=== PATIENT | male | born 1945 | race Caucasian/White ===

== ENCOUNTER 2019-02-23 14:22 | Outpatient (RCR) | payer MEDICARE, OTHER | END 2019-05-24 | disposition home or self-care (01) | LOC: WSST | DX: R13.12 Dysphagia, oropharyngeal phase (principal) ==

== ENCOUNTER → 2019-03-03 | Outpatient (CLI) | payer MEDICARE, OTHER | LOC: COL.RAD 14:26 | DX: R13.12 Dysphagia, oropharyngeal phase (principal) ==

== ENCOUNTER → 2020-11-18 | Outpatient (CLI) | payer MEDICARE, OTHER | LOC: COL.RAD 10:59 | DX: R06.02 Shortness of breath (principal); Z86.19 Personal history of other infectious and parasitic diseases | CPT/HCPCS: Q9967 ==

== ENCOUNTER → 2021-11-14 | Outpatient (CLI) | payer MEDICARE, OTHER ==
[2021-11-14 13:15] LABS: BASO % 0.5 % (0.0-2.0); EOS # 0.2 K/mm3 (0.0-0.7); EOS % 2.6 % (0-4.0); GRAN # 4.3 K/mm3 (1.4-6.5); GRAN % 56.3 % (42.2-75.2); HEMATOCRIT 44.2 % (42.0-52.0); HEMOGLOBIN 15.2 g/dl (13.5-18.0); LYMPH # 2.5 K/mm3 (1.2-3.4); LYMPH % 32.2 % (20.0-51.0); MEAN CELL VOLUME 90 fl (80.0-100.0); MEAN CORPUSCULAR HEMOGLOBIN 31 pg (27.0-31.0); MEAN CORPUSCULAR HGB CONC 34 g/dl (33.0-37.0); MEAN PLATELET VOLUME 9.4 fl (7.4-10.4); MONO # 0.6 K/mm3 (0.1-0.6); PLATELET COUNT 324 K/mm3 (130-400); RED BLOOD COUNT 4.93 M/mm3 (4.20-5.60)
[2021-11-14 13:30] LABS: ALANINE AMINOTRANSFERASE 16 U/L (0-55); ALBUMIN 4.2 gm/dL (3.4-4.8); ALKALINE PHOSPHATASE 41 U/L (40-150); ANION GAP 11 mmol/L (7-16); AST,SGOT 15 U/L (5-34); BILIRUBIN,TOTAL 0.3 mg/dL (0.2-1.2); BLOOD UREA NITROGEN 20 mg/dL (8-26); CALCIUM 9.4 mg/dL (8.4-10.2); CARBON DIOXIDE 21 mmol/L (23-31); CHLORIDE 109 mmol/L (98-107); CREATININE, serum 0.95 mg/dL (0.72-1.25); GLUCOSE 96 mg/dL (70-99); POTASSIUM 4.4 mmol/L (3.5-4.5); SODIUM 141 mmol/L (136-145); TOTAL PROTEIN 7.4 gm/dL (6.2-8.1)
[2021-11-14 13:50] LABS: THYROID STIMULATING HORMONE 2.041 uIU/mL (0.350-4.940)
[2021-11-14 13:51] LABS: TROPONIN-I < 0.010 ng/mL (0.00-0.033)
== END ==
LOC: LAC 12:18 → COL.LAB 12:28 → LAC 12:28
DX: Z79.899 Other long term (current) drug therapy (principal); R07.89 Other chest pain

== ENCOUNTER 2022-01-15 09:17 | Day surgery (SDC) | payer MEDICARE, OTHER ==
[2022-01-15] VITALS (9 sets, daily range): BP systolic 108–136; BP diastolic 60–76; PULSE 65–80; TEMP 97.5
[~2022-01-15] VITALS: Ht 172.7 cm; Wt 103.0 kg
[2022-01-15] MEDS ORDERED: ASPIRIN E.C. 8181 MG PO (09:46)
[2022-01-15] MEDS ORDERED: TRICOR 48MG48 MG PO (09:48)
[2022-01-15] MEDS ORDERED: KRILL OIL 5001 EACH PO (10:22)
[2022-01-15] MEDS ORDERED: CARDIZEM 60MG T60 MG PO (10:22)
[2022-01-15 10:23] LABS: HEMATOCRIT 46.4 % (42.0-52.0); HEMOGLOBIN 15.9 g/dl (13.5-18.0); MEAN CELL VOLUME 90 fl (80.0-100.0); MEAN CORPUSCULAR HEMOGLOBIN 31 pg (27-31); MEAN CORPUSCULAR HGB CONC 34 g/dl (33.0-37.0); MEAN PLATELET VOLUME 9.8 fl (7.4-10.4); PLATELET COUNT 320 K/mm3 (130-400); RED BLOOD COUNT 5.14 M/mm3 (4.20-5.60); REDCELL DISTRIBUTION WIDTH-CV 12.9 % (11.5-14.5)
[2022-01-15] MEDS ORDERED: OSTEO-BI-FLEX 21 TAB PO (10:23)
[2022-01-15] MEDS ORDERED: PRINIVIL40 MG PO (10:23)
[2022-01-15] MEDS ORDERED: CENTRUM SILVER1 TAB PO (10:23)
[2022-01-15] MEDS ORDERED: NAPROSYN500 MG PO (10:24)
[2022-01-15] MEDS ORDERED: NITROSTAT0.4 MG/TAB SL (10:25)
[2022-01-15] MEDS ORDERED: SYNTHROID0.088 MG/T PO (10:25)
[2022-01-15] MEDS ORDERED: PROTONIX 40MG T40 MG PO (10:25)
[2022-01-15 10:30] LABS: INR 1.1 (0.8-3.0); PROTHROMBIN TIME 12.5 SECONDS (9.7-12.8)
[2022-01-15 10:32] LABS: PARTIAL THROMBOPLASTIN TIME 33.2 SECONDS (26.0-37.0)
[2022-01-15 10:38] LABS: CALCIUM 9.4 mg/dL (8.4-10.2); CREATININE, serum 0.97 mg/dL (0.72-1.25); POTASSIUM 4.4 mmol/L (3.5-4.5)
--- NOTE | 2022-01-15 11:56 | NUR ---
SEE MERGE FOR ALL MEDICATION ADMINISTRATION TIMES/DOSAGES AND INTRA/POST PROCEDURE SEDATION ASSESSMENTS.
--- NOTE | 2022-01-15 12:15 | NUR ---
to eu 14 via bed from cath lab radiological technologist, pt is awake and alert, radial band is on wtih 12cc air. call light in reach, takes orange juice and [place] ordered. pt states will call later
--- NOTE | 2022-01-15 13:30 | NUR ---
pt sitting on side of bed for meal, tolerates well, states right wrist is sore, CMS are WNL
--- NOTE | 2022-01-15 14:15 | NUR ---
AIR RELEASE FROM BAND STARTING AT 2CC AT A TIME OVER 30 MIN WITH NO BLEEDING OR SWELLING AT SITE, BANDAID APPLIED AND COBAN FOR SUPPORT. DR TALBOT INTO SEE PT, IN ROOM, PT SITS ON SIDE OF BED.
--- NOTE | 2022-01-15 15:00 | NUR ---
REVIEWED DISCHARGE INST. WITH PT ON CARE OF SITE AND ACTIVITY, NO MED CHANGES. PT WILL CALL OFFICE AND MAKE 2 WEEK APPT FOR FOLLOWUP. REVIEWED MODERATE SEDATION PRECAUTIONS ALSO WITH VERBAL UNDERSTANDING. IV D'CD INTACT. PT UP IN ROOM DRESSED, DISCHARGED VIA W/C AT 1520
== END 2022-01-15 15:20 | disposition home or self-care (01) ==
LOC: COL.CAR 09:17
PROVIDERS: Internal Medicine Cardiovascular Disease
DX: R07.89 Other chest pain (principal); I25.110 Atherosclerotic heart disease of native coronary artery with unstable angina pectoris; I10 Essential (primary) hypertension; K21.9 Gastro-esophageal reflux disease without esophagitis; K22.70 Barrett's esophagus without dysplasia; E03.9 Hypothyroidism, unspecified; Z79.890 Hormone replacement therapy; Z87.891 Personal history of nicotine dependence; Z79.899 Other long term (current) drug therapy; Z79.82 Long term (current) use of aspirin
CPT/HCPCS: J1644; J2250; J3010; Q9967

== ENCOUNTER → 2022-03-12 | Outpatient (CLI) | payer MEDICARE, OTHER ==
[~2022-03-12] MED LIST: ASPIRIN E.C. 8181 MG PO; CARDIZEM 60MG T60 MG PO; CENTRUM SILVER1 TAB PO; KRILL OIL 5001 EACH PO; NAPROSYN500 MG PO; NITROSTAT0.4 MG/TAB SL; OSTEO-BI-FLEX 21 TAB PO; PRINIVIL40 MG PO; PROTONIX 40MG T40 MG PO; SYNTHROID0.088 MG/T PO; TRICOR 48MG48 MG PO
== END ==
LOC: COL.RAD 10:30
DX: K44.9 Diaphragmatic hernia without obstruction or gangrene (principal); J98.6 Disorders of diaphragm
CPT/HCPCS: Q9967

== ENCOUNTER → 2022-05-23 | Outpatient (CLI) | payer MEDICARE, OTHER | LOC: COL.RAD 10:11 | DX: J98.6 Disorders of diaphragm (principal); Z98.890 Other specified postprocedural states ==

== ENCOUNTER → 2022-06-13 | Outpatient (CLI) | payer MEDICARE, OTHER | LOC: COL.RAD 10:32 | DX: R42 Dizziness and giddiness (principal) ==